=== PATIENT | female | born 1950 | race African-American/Black ===

== ENCOUNTER → 2022-04-03 | Day surgery (SDC) | payer MEDICARE, BC ==
[2022-04-01 14:04] LABS: BASOPHILS % 0.6 % (0.0-1.0); EOSINOPHILS # (AUTO) 0.8 (0.0-0.4); EOSINOPHILS % 11.7 % (0.0-6.0); HEMATOCRIT 33.2 % (34.2-44.1); HEMOGLOBIN 10.3 g/dL (12.0-16.0); LYMPHOCYTES # (AUTO) 2.2 (1.0-3.2); LYMPHOCYTES % 32.1 % (18.0-39.1); MEAN CORPUSCULAR HEMOGLOBIN 29.3 pg (28-32); MEAN CORPUSCULAR VOLUME 94.6 fL (81-99); MONOCYTES # (AUTO) 0.5 (0.2-0.8); NEUTROPHILS # (AUTO) 3.2 (2.1-6.9); PLATELET COUNT 336 x10e3/uL (140-360); RED BLOOD COUNT 3.51 x10e6/uL (3.6-5.1); RED CELL DISTRIBUTION WIDTH 14.3 % (11.7-14.4)
[2022-04-01 14:32] LABS: ANION GAP 15.5 mmol/L (8-16); CALCIUM 9.2 mg/dL (8.4-10.2); CREATININE, SERUM 0.97 mg/dL (0.57-1.11); POTASSIUM 3.5 mmol/L (3.5-5.1)
[~2022-04-03] MED LIST: AMLODIPINE BESYL5 MG PO; ASPIRIN81 MG PO; ATORVASTATIN CA20 MG PO; AZITHROMYCIN250 MG PO; B&O 60MG R/S 60 MG SUPP PR ONE; CARVEDILOL12.5 MG PO; CEFTRIAXONE 1 GM VIAL ONE; CITALOPRAM HBR40 MG PO; CLOPIDOGREL75 MG PO; DEXAMETHASONE SOD PHOS INJ 4 MG/ML SDV ONE; EPHEDRINE SULFATE INJ 50 MG/ML VIAL ONE; FENTANYL CITRATE/PF 100MCG/2 ML INJ ONE; GENTAMICIN 80MG/NS 100 ML 200 ML IV ONE; GLIMEPIRIDE2 MG PO; LIDOCAINE HCL 2% LOCAL INJ 5 ML SDV VIAL INJ ONE; LOSARTAN POTAS100 MG PO; MIDAZOLAM HCL 2 MG/2 ML VIAL ONE; NITROFURANTOIN100 MG PO; ONDANSETRON HCL INJ 2MG/ML 2ML 2 MG/ML VIAL ONE; POVIDONE IODINE 0.05% 0.05 % ML PO ONE; PROPOFOL IV EMULSION 10 MG/ML 20 ML VIAL ONE; PROTONIX20 MG PO; RANEXA500 MG PO; SEVOFLURANE INHAL SOLN 250 ML PEN BTL ONE; SPIRIVA18 MCG INH; SUCRALFATE1 GM PO; TRELEGY INH; VITAMIN B COMP1 EAC5 PO; VITAMIN D325 MCG PO
[2022-04-03 10:05] VITALS: BP 140/70
== END | disposition home or self-care (01) ==
LOC: OR 05:55
PROVIDERS: ATTEND Urology
DX: N20.0 Calculus of kidney (principal); N13.30 Unspecified hydronephrosis; N81.10 Cystocele, unspecified; N81.6 Rectocele; N95.2 Postmenopausal atrophic vaginitis; N36.41 Hypermobility of urethra; N35.92 Unspecified urethral stricture, female; N32.89 Other specified disorders of bladder; I10 Essential (primary) hypertension; I25.10 Atherosclerotic heart disease of native coronary artery without angina pectoris; I70.219 Atherosclerosis of native arteries of extremities with intermittent claudication, unspecified extremity; J44.9 Chronic obstructive pulmonary disease, unspecified; I25.2 Old myocardial infarction; E78.00 Pure hypercholesterolemia, unspecified; E11.9 Type 2 diabetes mellitus without complications; E78.5 Hyperlipidemia, unspecified; F41.9 Anxiety disorder, unspecified; F32.A Depression, unspecified; F17.200 Nicotine dependence, unspecified, uncomplicated; Z88.4 Allergy status to anesthetic agent; Z01.810 Encounter for preprocedural cardiovascular examination; Z01.812 Encounter for preprocedural laboratory examination; Z01.818 Encounter for other preprocedural examination; Z79.82 Long term (current) use of aspirin; Z79.02 Long term (current) use of antithrombotics/antiplatelets; Z79.899 Other long term (current) drug therapy; Z68.30 Body mass index [BMI] 30.0-30.9, adult
CPT/HCPCS: 36415 ×2; 50590; 52332; 74018; 80048; 82948; 83970; 84550; 85025; 93005; C1874; J0696; J1100; J1580; J2001; J2250; J2405; J2704; J3010

== ENCOUNTER → 2022-06-08 | Day surgery (SDC) | payer MEDICARE, BC ==
[~2022-06-08] MED LIST changes: -B&O 60MG R/S 60 MG SUPP PR ONE; -DEXAMETHASONE SOD PHOS INJ 4 MG/ML SDV ONE; -EPHEDRINE SULFATE INJ 50 MG/ML VIAL ONE; +FEROSUL325 MG PO; +IOPAMIDOL 300MG/ML 50ML INFUS..BTL IV ONE; -MIDAZOLAM HCL 2 MG/2 ML VIAL ONE; +NIFEDIPINE10 MG PO; +OXYBUTYNIN CHLOR5 MG PO; +VITAMIN E400 UNI1 PO
[2022-06-08 06:28] LABS: BASOPHILS % 0.7 % (0.0-1.0); EOSINOPHILS # (AUTO) 0.3 (0.0-0.4); EOSINOPHILS % 5.7 % (0.0-6.0); HEMATOCRIT 36.4 % (34.2-44.1); HEMOGLOBIN 11.2 g/dL (12.0-16.0); LYMPHOCYTES # (AUTO) 1.2 (1.0-3.2); LYMPHOCYTES % 28.2 % (18.0-39.1); MEAN CORPUSCULAR HEMOGLOBIN 28.3 pg (28-32); MEAN CORPUSCULAR HGB CONC 30.8 g/dL (31-35); MEAN CORPUSCULAR VOLUME 91.9 fL (81-99); MONOCYTES # (AUTO) 0.5 (0.2-0.8); MONOCYTES % 11.9 % (4.4-11.3); NEUTROPHILS # (AUTO) 2.3 (2.1-6.9); NEUTROPHILS % 53.3 % (38.7-80.0); PLATELET COUNT 280 x10e3/uL (140-360); RED BLOOD COUNT 3.96 x10e6/uL (3.6-5.1); RED CELL DISTRIBUTION WIDTH 17.2 % (11.7-14.4)
[2022-06-08 06:49] LABS: ANION GAP 14.4 mmol/L (8-16); CALCIUM 9.2 mg/dL (8.4-10.2); CREATININE, SERUM 0.86 mg/dL (0.57-1.11); POTASSIUM 3.4 mmol/L (3.5-5.1)
[2022-06-08 09:13] VITALS: BP 145/83
== END | disposition home or self-care (01) ==
LOC: OR 05:38
PROVIDERS: ATTEND Urology
DX: N35.92 Unspecified urethral stricture, female (principal); Z87.442 Personal history of urinary calculi; Z46.6 Encounter for fitting and adjustment of urinary device; N28.89 Other specified disorders of kidney and ureter; N81.10 Cystocele, unspecified; N81.6 Rectocele; N36.41 Hypermobility of urethra; N95.2 Postmenopausal atrophic vaginitis; N32.89 Other specified disorders of bladder; E11.9 Type 2 diabetes mellitus without complications; I10 Essential (primary) hypertension; I25.10 Atherosclerotic heart disease of native coronary artery without angina pectoris; E78.00 Pure hypercholesterolemia, unspecified; R09.89 Other specified symptoms and signs involving the circulatory and respiratory systems; I73.9 Peripheral vascular disease, unspecified; Z79.02 Long term (current) use of antithrombotics/antiplatelets; Z79.82 Long term (current) use of aspirin; Z79.84 Long term (current) use of oral hypoglycemic drugs; Z79.899 Other long term (current) drug therapy; Z87.891 Personal history of nicotine dependence; Z68.30 Body mass index [BMI] 30.0-30.9, adult
CPT/HCPCS: 36415; 52351; 71046; 74018; 74420; 80048; 82948; 84550; 85025; 87086; C1769; J0696; J1580; J2001; J2405; J2704; J3010; Q9967